=== PATIENT | female | born 1975 | race Caucasian/White ===

== ENCOUNTER 2021-12-06 10:18 | Outpatient (CLI) | payer OTHER ==
[~2021-12-06 10:18] MED LIST: Magnevist 469MG/ML 20 ML VIAL ONE
== END 2021-12-06 10:19 | disposition home or self-care (01) ==
LOC: CSHMRI 10:18
PROVIDERS: ATTEND Psychiatry & Neurology Neurology
DX: D32.0 Benign neoplasm of cerebral meninges (principal)
CPT/HCPCS: 70553; A9579

== ENCOUNTER 2023-09-16 10:30 | Outpatient (CLI) | payer OTHER | END 2023-09-16 10:31 | disposition home or self-care (01) | LOC: CSHRAD 10:30 | PROVIDERS: ATTEND Student in an Organized Health Care Education/Training Program | DX: M25.371 Other instability, right ankle (principal) ==

== ENCOUNTER 2023-12-10 08:40 | Outpatient (CLI) | payer OTHER | END 2023-12-10 08:41 | disposition home or self-care (01) | LOC: CSHULT 08:40 | PROVIDERS: ATTEND Family Medicine | DX: R10.11 Right upper quadrant pain (principal); M47.26 Other spondylosis with radiculopathy, lumbar region; M48.061 Spinal stenosis, lumbar region without neurogenic claudication; M51.16 Intervertebral disc disorders with radiculopathy, lumbar region; M48.07 Spinal stenosis, lumbosacral region | CPT/HCPCS: 72148; 76705 ==

== ENCOUNTER 2024-10-25 12:37 | Outpatient (CLI) | payer OTHER | END 2024-10-25 12:38 | disposition home or self-care (01) | LOC: CSHMRI 12:37 | PROVIDERS: ATTEND Family Medicine | DX: D32.9 Benign neoplasm of meninges, unspecified (principal) | CPT/HCPCS: 70553; 76376 ==

== ENCOUNTER 2025-02-22 14:06 | Outpatient (CLI) | payer OTHER ==
[~2025-02-22 14:06] MED LIST changes: +Iopamidol 370 76% 100 ML VIAL ONE; -Magnevist 469MG/ML 20 ML VIAL ONE
== END 2025-02-22 14:07 | disposition home or self-care (01) ==
LOC: CSHCT 14:06
PROVIDERS: ATTEND Otolaryngology Plastic Surgery within the Head & Neck
DX: J03.90 Acute tonsillitis, unspecified (principal)
CPT/HCPCS: 70492